=== PATIENT | female | born 1965 | race Native Hawaiian/Other Pacific Islander ===

== ENCOUNTER 2022-03-01 11:02 | Emergency (ER) | payer OTHER ==
[2022-03-01 11:17] VITALS: BP 121/73; PULSE 63; RESP 18; TEMP 98.6
--- NOTE | 2022-03-01 12:02 | XR ---
EXAMINATION TYPE: XR ankle complete 3 views RT, XR foot complete 3 views RT DATE OF EXAM: 03/01/2022 COMPARISON: NONE HISTORY: 57-year-old female with pain after fall FINDINGS: Ankle: Anterior and lateral sided soft tissue swelling. Tibiotalar joint is intact. Ankle mortise is congrue nt. Achilles tendon smoothly delineated. Small posterior and plantar heel spurs. Foot: There is a 6 mm curvilinear avulsion fracture fragment at dorsomedial aspect of the talar head with o verlying soft tissue swelling. No acute fracture, subluxation, dislocation seen elsewhere. IMPRESSION: 1. Ankle: No acute osseous abnormality seen. 2. Foot: A 6 mm capsular avulsion fracture fragment from the dorsomedial talar head.
--- NOTE | 2022-03-01 12:54 | ED ---
Lower Extremity Injury HPI - General Chief Complaint: Extremity Injury, Lower Stated Complaint: Fall, R foot pain Time Seen by Provider: 03/01/22 12:33 Source: patient, RN notes reviewed Mode of arrival: wheelchair Limitations: no limitations - History of Present Illness Initial Comments: 57-year-old female presents emergency Department with chief complaint of right foot pain. Patient states she misstepped twisted her ankle. Patient states she has plantar right foot and ankle pain. Patient denies any prior injuries no paresthesias no other injuries noted from the fall. - Related Data Allergies Allergy/AdvReac Type Severity Reaction Status Date / Time No Known Allergies Allergy Verified 03/01/22 11:13 Review of Systems ROS Statement: Those systems with pertinent positive or pertinent negative responses have been documented in the HPI. ROS Other: All systems not noted in ROS Statement are negative. Past Medical History Past Medical History: Hyperlipidemia History of Any Multi-Drug Resistant Organisms: None Reported Past Surgical History: No Surgical Hx Reported Past Psychological History: No Psychological Hx Reported Smoking Status: Never smoker Past Alcohol Use History: None Reported Past Drug Use History: None Reported General Exam Limitations: no limitations General appearance: alert, in no apparent distress Head exam: Present: atraumatic, normocephalic, normal inspection Neck exam: Present: normal inspection. Absent: tenderness, meningismus, lymphadenopathy Respiratory exam: Present: normal lung sounds bilaterally. Absent: respiratory distress, wheezes, rales, rhonchi, stridor Cardiovascular Exam: Present: regular rate, normal rhythm, normal heart sounds. Absent: systolic murmur, diastolic murmur, rubs, gallop, clicks Extremities exam: Present: other (Right ankle there is tenderness on the anterior aspect, proximal foot region neurovascular intact moderate swelling no ecchymosis no tib-fib tenderness in the proximal region) Course Vital Signs 03/01/22 11:14 Temperature 98.6 F Pulse Rate 63 Respiratory 18 Rate Blood Pressure 121/73 O2 Sat by Pulse 100 Oximetry Procedures - Orthopedic Splinting/Casting Injury #1 Side: right Lower Extremity Injury Location: short leg, ankle, foot Lower Extremity Immobilizer: posterior splint, synthetic pre-padded splint Other Orthopedic Equipment: crutches Medical Decision Making - Medical Decision Making Patient x-ray shows evidence of talar avulsion fracture. Patient splinted in a short leg she is neurovascularly intact and was given crutches. Patient does not want any pain meds and chronic pain meds in the emergency department. Patient will follow-up with orthopedics and return for any worsening changes symptoms. We discussed nonweightbearing. Disposition Clinical Impression: Fracture of right talus Disposition: HOME SELF-CARE Condition: Stable Instructions (If sedation given, give patient instructions): Foot Fracture in Adults (ED) Additional Instructions: Please return to the Emergency Department if symptoms worsen or any other krystal rns. Is patient prescribed a controlled substance at d/c from ED?: No Referrals: Joan Goldman MD [Primary Care Provider] - 1-2 days Corona Watkins DO [Doctor of Osteopathic Medicine] - 1-2 days Time of Disposition: 12:54
== END 2022-03-01 14:02 | disposition home or self-care (01) ==
LOC: EC 11:02
DX: S92.101A Unspecified fracture of right talus, initial encounter for closed fracture (principal); E78.5 Hyperlipidemia, unspecified; W01.0XXA Fall on same level from slipping, tripping and stumbling without subsequent striking against object, initial encounter

== ENCOUNTER → 2024-03-21 | Outpatient (CLI) | payer OTHER ==
[2024-03-21 13:30] VITALS: BP 123/81; PULSE 74; RESP 16; TEMP 98.3
--- NOTE | 2024-03-21 14:19 | P.HPOB ---
History of Present Illness H&P Date: 03/21/24 Chief Complaint: Patient is here for her routine gynecologic exam. This is a 59-year-old -0-1-4 with an LMP of 2016. The patient is here to establish with this office. It has been about 2 years since her last pelvic exam. The patient speaks very little Sinhala and her daughter, Mis, and is here to translate. She is without any gynecologic complaints and denies any postmenopausal bleeding. Review of Systems The patient has gained 5 pounds over the last year. She denies respiratory, cardiac, or G.I. problems. : She was referred to a urologist for some blood in the urine and is undergoing workup for this. Past Medical History Past Medical History: GERD/Reflux, Hyperlipidemia Additional Past Medical History / Comment(s): PAST BUSINESS STRATEGIST HISTORY: She has no history of STDs. History of Any Multi-Drug Resistant Organisms: None Reported Past Surgical History: No Surgical Hx Reported Past Psychological History: No Psychological Hx Reported Smoking Status: Never smoker Past Alcohol Use History: None Reported Past Drug Use History: None Reported Additional History: She has been since 1986 and does not work outside of the home. - Past Family History Mother Family Medical History: No Reported History Father Family Medical History: Hypertension Sister(s) Family Medical History: Cancer, Diabetes Mellitus, Neurologic Disorder Additional Family Medical History / Comment(s): 1 sister had breast cancer, 1 sister had MS, 1 sister had diabetes Medications and Allergies Home Medications Medication Instructions Recorded Confirmed Type Cholecalciferol (Vitamin D3) 1 cap PO DAILY 03/21/24 03/21/24 History [Vitamin D3 (125 MCG = 5,000 IU)] Omeprazole [PriLOSEC] 10 mg PO DAILY 03/21/24 03/21/24 History Allergies Allergy/AdvReac Type Severity Reaction Status Date / Time No Known Allergies Allergy Verified 03/21/24 13:27 Exam Vital Signs Temp Pulse Resp BP Pulse Ox 03/21/24 13:28 98.3 F 74 16 123/81 100 Intake and Output 03/20/24 03/21/24 03/21/24 22:59 06:59 14:59 Other: Weight 63.503 kg Height 5 feet 2 inches, weight 140 pounds, BMI 25.6. This is a well-developed well-nourished female who is alert and oriented times 3 in no acute distress. HEENT: Within normal limits. NECK: Supple without mass or thyromegaly. CHEST AND LUNGS: Clear to auscultation. HEART: Regular rate and rhythm. BREASTS: Are without mass or discharge. There is left nipple inversion. The patient states it has been this way for about 26 years. Right nipple is not inverted. AXILLARY EXAM: Negative for adenopathy. BACK: Negative for CVA tenderness. ABDOMEN: Soft, nontender, without palpable masses. PELVIC EXAM: Normal external genitalia mild atrophy. Cervix and vagina appear normal with mild atrophy. There is no unusual discharge. There is no evidence of prolapse. The uterus is midposition, nongravid size and nontender. There are no palpable adnexal masses or tenderness. RECTAL EXAM: Rectovaginal exam is negative for mass or tenderness and is negative for occult blood. EXTREMITIES: Nontender. IMPRESSION: 1. 59-year-old menopausal female with normal gynecologic exam. 2. Chronic left nipple inversion which is unchanged for 26 years. PLAN: 1. Pap smear cotest was performed. 2. Self breast awareness was discussed with the patient. We have also discussed symptoms associated with inflammatory breast cancer. 3. Patient had a screening mammogram done at [facility] about 1 month ago and was normal per the patient. She will repeat this after 1 year. She was given the option of doing her mammograms on the same day as her annual well woman examination. 4. Osteoporosis prevention was discussed. I have stressed the importance of adequate calcium, vitamin D and regular exercise. Recommended amounts of calcium and vitamin D were also discussed. 5. Colorectal cancer screening was discussed. She states she has done C ologuard testing through her PCP and will continue to do it through her PCP. 6. She was advised to return in one year for her annual well woman exam.
== END ==
LOC: WWCWWP 12:53
PROVIDERS: ATTEND Obstetrics & Gynecology
DX: Z01.419 Encounter for gynecological examination (general) (routine) without abnormal findings (principal); N64.59 Other signs and symptoms in breast; Z78.0 Asymptomatic menopausal state

== ENCOUNTER → 2025-01-29 | Outpatient (CLI) | payer OTHER ==
--- NOTE | 2025-01-29 09:38 | MM ---
Reason for Exam: Screening (asymptomatic). Last screening mammogram was performed 12 month(s) ago. Patient History: Menarche at age 15. First Full-Term at age 23. Postmenopausal. MG stereo VAD BX LT - 2 on the Left side. MG stereo VAD BX RT on the Right side. Sister had breast cancer. Risk Values: Chloe 5 year model risk: 3.7%. NCI Lifetime model risk: 20.9%. Prior Study Comparison: 12/24/2008 Bilateral Screening Mammogram, [facility]. 12/25/2009 Bilateral Screening Mammogram, [facility]. 02/18/2012 Bilateral Screening Mammogram, [facility]. Tissue Density: The breasts are heterogeneously dense, which may obscure small masses. Findings: Analyzed By CAD. There is no suspicious group of microcalcifications or new suspicious mass in either breast. Overall Assessment: Benign, BI-RAD 2 Management: Screening Mammogram of both breasts in 1 year. . Patient should continue monthly self-breast exams. A clinical breast exam by your physician is recommended on an annual basis. This exam should not preclude additional follow-up of suspicious palpable abnormalities. Note on Chloe scores and lifetime risk: 1. A Chloe score greater than 3% is considered moderate risk. If this is the case, consider specialist referral to assess eligibility for a risk reducing agent. 2. If overall lifetime risk for the development of breast cancer is 20% or higher, the patient may qualify for future screening with alternating mammogram and breast MRI. [facility], , 01/29/2025 9:35 AM. Electronically signed and approved by: Isaias Mcguire M.D. Radiologis
== END | disposition home or self-care (01) ==
LOC: RADMAMWWP 08:46
PROVIDERS: ATTEND Nurse Practitioner Family
DX: Z12.31 Encounter for screening mammogram for malignant neoplasm of breast (principal); R92.333 Mammographic heterogeneous density, bilateral breasts; Z78.0 Asymptomatic menopausal state; Z80.3 Family history of malignant neoplasm of breast
CPT/HCPCS: 77063; 77067